=== PATIENT | female | born 1990 | race African-American/Black ===

== ENCOUNTER 2019-06-19 14:03 | Emergency (ER) | payer MEDICAID ==
[~2019-06-19] VITALS: Ht 165.1 cm; Wt 100.0 kg
[2019-06-19 18:40] VITALS: BP 105/71
[2019-06-19 20:41] LABS: CLARITY URINE TURBID (CLEAR); COLOR URINE DARK YELLOW (YELLOW); KETONES URINE 2+ (NEGATIVE); LEUKOCYTE ESTERASE URINE 2+ (NEGATIVE); NITRITE URINE NEGATIVE (NEGATIVE); OCCULT BLOOD URINE NEGATIVE (NEGATIVE); PH URINE 5.5 (4.5-8.0); PROTEIN URINE 1+ (NEGATIVE); SPECIFIC GRAVITY URINE 1.032 (1.005-1.030)
== END 2019-06-20 00:18 | disposition home or self-care (01) ==
LOC: ER 14:03
DX: O26.892 Other specified pregnancy related conditions, second trimester (principal); O23.42 Unspecified infection of urinary tract in pregnancy, second trimester; D64.9 Anemia, unspecified; Z3A.17 17 weeks gestation of pregnancy
CPT/HCPCS: 76805; 81003; 81025; 99284

== ENCOUNTER 2019-11-21 15:44 | Inpatient (IN) | payer MEDICAID ==
[~2019-11-21] VITALS: Ht 162.6 cm; Wt 100.2 kg
[2019-11-21] MEDS ORDERED: NALOXONE HCL 0.4 MG/ML 1ML VIAL IM PRN (17:00)
[2019-11-21] MEDS ORDERED: BUTORPHANOL TARTRATE 2 MG/ML VIAL IV PRN (17:00)
[2019-11-21] MEDS ORDERED: DEXT 5%/LR + PITOCIN 20UNITS/L 1,000 ML IV SCH (17:00)
[2019-11-21] MEDS ORDERED: LIDOCAINE HCL 1% 20ML VIAL (Pyxis) INJ INFIL SCH (17:00)
[2019-11-21 17:23] LABS: CLARITY URINE CLEAR (CLEAR); COLOR URINE DARK YELLOW (YELLOW); KETONES URINE 1+ (NEGATIVE); LEUKOCYTE ESTERASE URINE 1+ (NEGATIVE); NITRITE URINE NEGATIVE (NEGATIVE); OCCULT BLOOD URINE 2+ (NEGATIVE); PH URINE 6.5 (4.5-8.0); PROTEIN URINE TRACE (NEGATIVE); SPECIFIC GRAVITY URINE 1.026 (1.005-1.030)
[2019-11-21 17:34] LABS: BASOPHILS % 0.2 % (0.0-2.0); EOSINOPHILS % 0.2 % (0.0-5.0); HEMATOCRIT. 30.9 % (36.0-48.0); HEMOGLOBIN. 9.8 g/dL (12.0-16.0); LYMPHOCYTES % 14.7 % (20.0-50.0); MEAN CORPUSCULAR HEMOGLOBIN 18.9 pg (28.0-32.0); MEAN CORPUSCULAR VOLUME 59.7 fL (81.0-99.0); MEAN PLATELET VOLUME 8.8 fl (7.4-10.4); MONOCYTES % 7.1 % (2.0-8.0); NEUTROPHILS % 77.8 % (40.0-76.0); PLATELET 96 x1000/uL (130-400); RED BLOOD CELL COUNT 5.18 mill/uL (4.2-5.4); RED CELL DISTRIBUTION WIDTH 22.7 % (11.6-14.6)
[2019-11-21 17:35] LABS: INR 0.9; PARTIAL THROMBOPLASTIN TIME 26.4 sec (23.4-31.0); PROTHROMBIN TIME 9.8 sec (9.6-11.0)
[2019-11-21] MEDS: MISOPROSTOL 100MCG TABLET VG SCH ×2 (17:47→21:00)
[2019-11-21] MEDS: LACTATED RINGERS 1,000 ML IV SCH (17:50)
[2019-11-21] MEDS ORDERED: PENICILLIN G POTASSIUM 5 MMU in DEXT 5% WATER 100 ML IV NR (18:00)
[2019-11-21 18:12] LABS: PLATELET ESTIMATE DECREASED
[2019-11-21 18:13] LABS: HEPATITIS B SURFACE ANTIGEN NEGATIVE
[2019-11-21 18:14] LABS: *AMPHETAMINES SCREEN URINE NEGATIVE (NEGATIVE)
[2019-11-21 18:15] LABS: *BARBITURATES SCREEN URINE NEGATIVE (NEGATIVE); *BENZODIAZEPINES SCREEN URINE NEGATIVE (NEGATIVE); *COCAINE SCREEN URINE NEGATIVE (NEGATIVE); METHADONE URINE SCREEN NEGATIVE (NEGATIVE); OPIATES URINE SCREEN NEGATIVE (NEGATIVE); PHENCYCLIDINE URINE SCREEN NEGATIVE (NEGATIVE)
[2019-11-21 18:16] LABS: CANNABINOID URINE SCREEN NEGATIVE (NEGATIVE)
[2019-11-21 19:00] LABS: CHLORIDE 107 mEq/L (98-107)
[2019-11-21 19:15] LABS: D-DIMER 4.58 mg/L FEU (<0.50)
[2019-11-21] MEDS ORDERED: PENICILLIN G POTASSIUM 2.5 MMU in DEXTROSE 5% WATER 50 ML IV SCH (22:00)
[2019-11-21 23:54] LABS: BASOPHILS % 0.6 % (0.0-2.0); EOSINOPHILS % 0.7 % (0.0-5.0); HEMOGLOBIN. 9.5 g/dL (12.0-16.0); LYMPHOCYTES % 20.3 % (20.0-50.0); MEAN CORPUSCULAR HEMOGLOBIN 19.3 pg (28.0-32.0); MEAN CORPUSCULAR VOLUME 60.4 fL (81.0-99.0); MEAN PLATELET VOLUME 9.1 fl (7.4-10.4); MONOCYTES % 7.3 % (2.0-8.0); NEUTROPHILS % 71.1 % (40.0-76.0); PLATELET 83 x1000/uL (130-400); RED BLOOD CELL COUNT 4.96 mill/uL (4.2-5.4); RED CELL DISTRIBUTION WIDTH 22.6 % (11.6-14.6)
[2019-11-22 00:08] LABS: CHLORIDE 105 mEq/L (98-107); INR 0.9; PARTIAL THROMBOPLASTIN TIME 27.4 sec (23.4-31.0); PROTHROMBIN TIME 9.7 sec (9.6-11.0)
[2019-11-22] MEDS: MISOPROSTOL 100MCG TABLET VG SCH ×2 (02:51→07:13)
[2019-11-22] MEDS: LACTATED RINGERS 1,000 ML IV SCH ×3 (02:51→12:42)
[2019-11-22 06:26] LABS: CHLORIDE 108 mEq/L (98-107)
[2019-11-22 06:29] LABS: BASOPHILS % 0.4 % (0.0-2.0); EOSINOPHILS % 0.5 % (0.0-5.0); HEMATOCRIT. 28.3 % (36.0-48.0); HEMOGLOBIN. 8.9 g/dL (12.0-16.0); LYMPHOCYTES % 22.9 % (20.0-50.0); MEAN CORPUSCULAR HEMOGLOBIN 18.9 pg (28.0-32.0); MEAN CORPUSCULAR VOLUME 60.1 fL (81.0-99.0); MONOCYTES % 9.8 % (2.0-8.0); NEUTROPHILS % 66.4 % (40.0-76.0); RED BLOOD CELL COUNT 4.71 mill/uL (4.2-5.4); RED CELL DISTRIBUTION WIDTH 23.1 % (11.6-14.6)
[2019-11-22 06:37] LABS: INR 0.9; PARTIAL THROMBOPLASTIN TIME 26.6 sec (23.4-31.0); PROTHROMBIN TIME 9.5 sec (9.6-11.0)
[2019-11-22 07:09] LABS: CLARITY URINE CLEAR (CLEAR); COLOR URINE YELLOW (YELLOW); KETONES URINE TRACE (NEGATIVE); LEUKOCYTE ESTERASE URINE 1+ (NEGATIVE); NITRITE URINE NEGATIVE (NEGATIVE); OCCULT BLOOD URINE NEGATIVE (NEGATIVE); PH URINE 6.5 (4.5-8.0); PROTEIN URINE TRACE (NEGATIVE); SPECIFIC GRAVITY URINE 1.025 (1.005-1.030)
[2019-11-22 07:59] LABS: MEAN PLATELET VOLUME 9.9 fl (7.4-10.4); PLATELET 84 x1000/uL (130-400)
[2019-11-22] MEDS ORDERED: MISOPROSTOL 100MCG TABLET PO PRN (11:30)
[2019-11-22 12:39] LABS: BASOPHILS % 0.2 % (0.0-2.0); EOSINOPHILS % 0.7 % (0.0-5.0); HEMATOCRIT. 29.6 % (36.0-48.0); HEMOGLOBIN. 9.3 g/dL (12.0-16.0); LYMPHOCYTES % 17.2 % (20.0-50.0); MEAN CORPUSCULAR HEMOGLOBIN 18.8 pg (28.0-32.0); MEAN CORPUSCULAR VOLUME 60.1 fL (81.0-99.0); MONOCYTES % 6.3 % (2.0-8.0); NEUTROPHILS % 75.6 % (40.0-76.0); RED BLOOD CELL COUNT 4.93 mill/uL (4.2-5.4); RED CELL DISTRIBUTION WIDTH 22.6 % (11.6-14.6)
[2019-11-22 12:44] LABS: CHLORIDE 107 mEq/L (98-107)
[2019-11-22 13:14] LABS: D-DIMER 4.39 mg/L FEU (<0.50); INR 0.9; PROTHROMBIN TIME 9.6 sec (9.6-11.0)
[2019-11-22 13:43] LABS: MEAN PLATELET VOLUME 9.9 fl (7.4-10.4); PLATELET 78 x1000/uL (130-400)
[2019-11-22] MEDS: MISOPROSTOL 100MCG TABLET PO PRN ×2 (15:18→19:25)
[2019-11-22 20:01] LABS: BASOPHILS % 0.1 % (0.0-2.0); EOSINOPHILS % 0.6 % (0.0-5.0); HEMATOCRIT. 29.9 % (36.0-48.0); HEMOGLOBIN. 9.6 g/dL (12.0-16.0); MEAN CORPUSCULAR HEMOGLOBIN 19.3 pg (28.0-32.0); MEAN CORPUSCULAR VOLUME 60.2 fL (81.0-99.0); MEAN PLATELET VOLUME 9.4 fl (7.4-10.4); MONOCYTES % 8.5 % (2.0-8.0); NEUTROPHILS % 74.8 % (40.0-76.0); PLATELET 73 x1000/uL (130-400); RED BLOOD CELL COUNT 4.97 mill/uL (4.2-5.4); RED CELL DISTRIBUTION WIDTH 23.1 % (11.6-14.6)
[2019-11-22 20:11] LABS: CHLORIDE 108 mEq/L (98-107)
[2019-11-22 20:18] LABS: D-DIMER 4.32 mg/L FEU (<0.50); INR 0.9; PARTIAL THROMBOPLASTIN TIME 27.5 sec (23.4-31.0); PROTHROMBIN TIME 9.4 sec (9.6-11.0)
[2019-11-22] MEDS ORDERED: DINOPROSTONE 10MG VAGINAL INSERT VG NR (23:45)
[2019-11-23 00:18] LABS: BASOPHILS % 0.5 % (0.0-2.0); EOSINOPHILS % 0.6 % (0.0-5.0); HEMATOCRIT. 29.9 % (36.0-48.0); HEMOGLOBIN. 9.6 g/dL (12.0-16.0); MEAN CORPUSCULAR HEMOGLOBIN 19.4 pg (28.0-32.0); MEAN CORPUSCULAR VOLUME 60.2 fL (81.0-99.0); MEAN PLATELET VOLUME 8.4 fl (7.4-10.4); MONOCYTES % 7.5 % (2.0-8.0); NEUTROPHILS % 73.4 % (40.0-76.0); PLATELET 76 x1000/uL (130-400); RED BLOOD CELL COUNT 4.96 mill/uL (4.2-5.4); RED CELL DISTRIBUTION WIDTH 23.1 % (11.6-14.6)
[2019-11-23 00:24] LABS: CHLORIDE 108 mEq/L (98-107)
[2019-11-23 00:33] LABS: INR 0.9; PARTIAL THROMBOPLASTIN TIME 27.3 sec (23.4-31.0); PROTHROMBIN TIME 9.6 sec (9.6-11.0)
[2019-11-23] MEDS: BUTORPHANOL TARTRATE 2 MG/ML VIAL IV PRN ×4 (01:31→21:02)
[2019-11-23] MEDS: LACTATED RINGERS 1,000 ML IV SCH ×3 (06:18→21:45)
[2019-11-23] MEDS ORDERED: ONDANSETRON HCL 4MG/2ML INJ IV PRN (07:00)
[2019-11-23 07:19] LABS: BASOPHILS % 0.3 % (0.0-2.0); EOSINOPHILS % 0.4 % (0.0-5.0); HEMATOCRIT. 30.5 % (36.0-48.0); HEMOGLOBIN. 9.6 g/dL (12.0-16.0); LYMPHOCYTES % 18.4 % (20.0-50.0); MEAN CORPUSCULAR HEMOGLOBIN 18.8 pg (28.0-32.0); MEAN CORPUSCULAR VOLUME 59.9 fL (81.0-99.0); MONOCYTES % 7.6 % (2.0-8.0); NEUTROPHILS % 73.3 % (40.0-76.0); RED BLOOD CELL COUNT 5.08 mill/uL (4.2-5.4); RED CELL DISTRIBUTION WIDTH 22.8 % (11.6-14.6)
[2019-11-23 07:26] LABS: CHLORIDE 107 mEq/L (98-107)
[2019-11-23 07:27] LABS: CLARITY URINE CLEAR (CLEAR); COLOR URINE YELLOW (YELLOW); KETONES URINE 1+ (NEGATIVE); LEUKOCYTE ESTERASE URINE 1+ (NEGATIVE); NITRITE URINE NEGATIVE (NEGATIVE); OCCULT BLOOD URINE NEGATIVE (NEGATIVE); PROTEIN URINE NEGATIVE (NEGATIVE); SPECIFIC GRAVITY URINE 1.011 (1.005-1.030); UROBILINOGEN URINE 0.2 E.U./dL (0.2-1.0)
[2019-11-23 07:55] LABS: MEAN PLATELET VOLUME 10.5 fl (7.4-10.4); PLATELET 84 x1000/uL (130-400)
[2019-11-23] MEDS: DEXT 5%/LR + PITOCIN 20UNITS/L 1,000 ML IV SCH (08:11)
[2019-11-23 15:42] LABS: BASOPHILS % 0.3 % (0.0-2.0); EOSINOPHILS % 0.2 % (0.0-5.0); HEMATOCRIT. 29.5 % (36.0-48.0); HEMOGLOBIN. 9.4 g/dL (12.0-16.0); LYMPHOCYTES % 10.5 % (20.0-50.0); MEAN CORPUSCULAR HEMOGLOBIN 19.2 pg (28.0-32.0); MEAN CORPUSCULAR VOLUME 60.3 fL (81.0-99.0); MEAN PLATELET VOLUME 9.1 fl (7.4-10.4); MONOCYTES % 7.3 % (2.0-8.0); NEUTROPHILS % 81.7 % (40.0-76.0); PLATELET 74 x1000/uL (130-400); RED BLOOD CELL COUNT 4.89 mill/uL (4.2-5.4); RED CELL DISTRIBUTION WIDTH 23.4 % (11.6-14.6)
[2019-11-23 16:00] LABS: D-DIMER 3.67 mg/L FEU (<0.50); INR 0.9; PARTIAL THROMBOPLASTIN TIME 27.5 sec (23.4-31.0); PROTHROMBIN TIME 9.6 sec (9.6-11.0)
[2019-11-23 16:09] LABS: CHLORIDE 109 mEq/L (98-107)
[2019-11-23 21:02] LABS: HEMOGLOBIN. 9.7 g/dL (12.0-16.0); MEAN CORPUSCULAR VOLUME 60.5 fL (81.0-99.0); PLATELET 75 x1000/uL (130-400); RED BLOOD CELL COUNT 5.13 mill/uL (4.2-5.4); RED CELL DISTRIBUTION WIDTH 23.1 % (11.6-14.6)
[2019-11-23 21:06] LABS: INR 0.9; PARTIAL THROMBOPLASTIN TIME 26.8 sec (23.4-31.0); PROTHROMBIN TIME 9.6 sec (9.6-11.0)
[2019-11-23 21:09] LABS: CLARITY URINE CLEAR (CLEAR); COLOR URINE YELLOW (YELLOW); KETONES URINE NEGATIVE (NEGATIVE); LEUKOCYTE ESTERASE URINE 1+ (NEGATIVE); NITRITE URINE NEGATIVE (NEGATIVE); OCCULT BLOOD URINE 3+ (NEGATIVE); PH URINE 6.5 (4.5-8.0); PROTEIN URINE TRACE (NEGATIVE); SPECIFIC GRAVITY URINE 1.008 (1.005-1.030)
[2019-11-23 21:19] LABS: CHLORIDE 110 mEq/L (98-107)
[2019-11-23 21:54] LABS: BASOPHILS % 0.2 % (0.0-2.0); EOSINOPHILS % 0.5 % (0.0-5.0); MONOCYTES % 6.9 % (2.0-8.0); NEUTROPHILS % 81.4 % (40.0-76.0)
[2019-11-23 21:56] LABS: PLATELET ESTIMATE DECREASED
[2019-11-24] MEDS: BUTORPHANOL TARTRATE 2 MG/ML VIAL IV PRN ×2 (03:39→19:40)
[2019-11-24] MEDS: DEXT 5%/LR + PITOCIN 20UNITS/L 1,000 ML IV SCH (03:40)
[2019-11-24 04:18] LABS: CHLORIDE 109 mEq/L (98-107)
[2019-11-24 04:19] LABS: BASOPHILS % 0.8 % (0.0-2.0); EOSINOPHILS % 0.2 % (0.0-5.0); HEMATOCRIT. 29.6 % (36.0-48.0); HEMOGLOBIN. 9.5 g/dL (12.0-16.0); LYMPHOCYTES % 11.6 % (20.0-50.0); MEAN CORPUSCULAR HEMOGLOBIN 19.3 pg (28.0-32.0); MEAN CORPUSCULAR VOLUME 60.4 fL (81.0-99.0); MONOCYTES % 7.3 % (2.0-8.0); NEUTROPHILS % 80.1 % (40.0-76.0); RED CELL DISTRIBUTION WIDTH 22.8 % (11.6-14.6)
[2019-11-24 04:28] LABS: INR 0.9; PARTIAL THROMBOPLASTIN TIME 27.5 sec (23.4-31.0); PROTHROMBIN TIME 9.5 sec (9.6-11.0)
[2019-11-24 05:22] LABS: PLATELET 80 x1000/uL (130-400)
[2019-11-24] MEDS: LACTATED RINGERS 1,000 ML IV SCH (05:46)
[2019-11-24] MEDS ORDERED: CITRIC ACID/SODIUM CITRATE SOLN 30ML UDC PO ONE (08:15)
[2019-11-24] MEDS ORDERED: CEFAZOLIN SODIUM 1000MG/VIAL ONE ×2 (08:17→08:53)
[2019-11-24] MEDS ORDERED: PROPOFOL 200MG/20ML VIAL IV ONE (08:17)
[2019-11-24] MEDS ORDERED: OXYTOCIN 10 UNITS/ML 1ML ONE ×3 (08:17→09:28)
[2019-11-24] MEDS ORDERED: KETOROLAC 60MG/2ML VIAL IM ONE (08:18)
[2019-11-24] MEDS ORDERED: METOCLOPRAMIDE HCL 10MG/2ML VIAL ONE (08:18)
[2019-11-24] MEDS ORDERED: ONDANSETRON HCL 4MG/2ML INJ ONE (08:18)
[2019-11-24] MEDS ORDERED: ESMOLOL HCL 10MG/ML 10ML VIAL IV ONE (08:18)
[2019-11-24] MEDS ORDERED: SUCCINYLCHOLINE CHLORIDE 200MG/10ML IV ONE (08:19)
[2019-11-24] MEDS ORDERED: LIDOCAINE HCL/PF 2% 20MG/ML 5 ML/VIAL ONE (08:19)
[2019-11-24] MEDS ORDERED: FENTANYL CITRATE/PF 50MCG/ML 2ML VIAL ONE (08:19)
[2019-11-24] MEDS ORDERED: ROCURONIUM BROMIDE 10MG/ML VIAL 5ML IV ONE (09:00)
[2019-11-24] MEDS ORDERED: GLYCOPYRROLATE 0.2 MG/ML 2ML VIAL ONE (09:02)
[2019-11-24] MEDS ORDERED: NEOSTIGMINE METHYLSULFATE 1MG/ML 10 ML VIAL ONE (09:02)
[2019-11-24] MEDS ORDERED: DEXT 5%/LR + PITOCIN 20UNITS/L 1,000 ML IV SCH (09:29)
[2019-11-24] MEDS ORDERED: ONDANSETRON HCL 4MG/2ML INJ IV PRN ×2 (09:30→09:45)
[2019-11-24] MEDS ORDERED: IBUPROFEN 400MG TABLET PO PRN (09:30)
[2019-11-24] MEDS ORDERED: BISACODYL 10MG SUPP PR PRN (09:30)
[2019-11-24] MEDS ORDERED: LANOLIN OINT 7GM TUBE TOP PRN (09:30)
[2019-11-24] MEDS ORDERED: KETOROLAC 30MG/ML VIAL IV PRN (09:30)
[2019-11-24] MEDS ORDERED: DIPHENHYDRAMINE 25MG CAPSULE PO PRN (09:30)
[2019-11-24] MEDS ORDERED: RHO(D) IMMUNE GLOBULIN 300 MCG/SYR IM PRN (09:30)
[2019-11-24] MEDS ORDERED: FENTANYL CITRATE/PF 50MCG/ML 2ML VIAL IV PRN ×3 (09:45)
[2019-11-24] MEDS ORDERED: DEXAMETHASONE 10 MG/ML VIAL IV PRN (09:45)
[2019-11-24] MEDS ORDERED: DIPHENHYDRAMINE 50MG/ML VIAL IV PRN (09:45)
[2019-11-24] MEDS ORDERED: MORPHINE SULFATE 10 MG/ML CPJ IV PRN (09:45)
[2019-11-24] MEDS ORDERED: MORPHINE SULFATE 2 MG/ML CPJ (NOT FOR IM USE) IV PRN ×2 (09:45)
[2019-11-24] MEDS ORDERED: MEPERIDINE HCL/PF 25MG/ML CPJ IV PRN (09:45)
[2019-11-24] MEDS ORDERED: METHYLERGONOVINE MALEATE 0.2 MG/ML ONE (10:00)
[2019-11-24] MEDS: SIMETHICONE 80MG TABLET CHEW PO SCH ×2 (13:00→21:00)
[2019-11-24 13:25] VITALS: BP 106/66
[2019-11-24 13:55] VITALS: BP 110/56
[2019-11-24 17:00] VITALS: BP 113/74
[2019-11-24 20:00] VITALS: BP 124/60
[2019-11-24] MEDS: DOCUSATE SODIUM 100MG CAPSULE PO SCH (21:00)
[2019-11-25] VITALS: BP 125/81
[2019-11-25 05:48] VITALS: BP 130/78
[2019-11-25] MEDS ORDERED: AMPICILLIN 2,000 MG in SODIUM CHLORIDE 0.9% 100 ML IV SCH (06:00)
[2019-11-25 06:38] LABS: BASOPHILS % 0.2 % (0.0-2.0); EOSINOPHILS % 0.1 % (0.0-5.0); LYMPHOCYTES % 7.7 % (20.0-50.0); MEAN CORPUSCULAR HEMOGLOBIN 19.3 pg (28.0-32.0); MEAN CORPUSCULAR VOLUME 60.3 fL (81.0-99.0); MEAN PLATELET VOLUME 8.7 fl (7.4-10.4); MONOCYTES % 6.3 % (2.0-8.0); NEUTROPHILS % 85.7 % (40.0-76.0); PLATELET 84 x1000/uL (130-400); RED BLOOD CELL COUNT 3.48 mill/uL (4.2-5.4); RED CELL DISTRIBUTION WIDTH 22.2 % (11.6-14.6)
[2019-11-25 06:58] LABS: CHLORIDE 107 mEq/L (98-107)
[2019-11-25 07:49] LABS: HEMOGLOBIN. 6.7 g/dL (12.0-16.0)
[2019-11-25 09:00] VITALS: BP 126/76
[2019-11-25] MEDS ORDERED: GENTAMICIN SULFATE 160 MG in SODIUM CHLORIDE 0.9% 50 ML IV NR (09:00)
[2019-11-25] MEDS: SIMETHICONE 80MG TABLET CHEW PO SCH ×5 (09:50→20:55)
[2019-11-25] MEDS: IBUPROFEN 800MG TABLET PO PRN ×4 (10:06→23:09)
[2019-11-25 12:00] VITALS: BP 128/78
[2019-11-25 15:00] VITALS: BP 133/76
[2019-11-25] MEDS: AMPICILLIN 1,000 MG in SODIUM CHLORIDE 0.9% 50 ML IV SCH ×2 (15:08→20:55)
[2019-11-25] MEDS: PRENATAL VIT/FE FUMARATE/FA TABLET PO SCH (15:09)
[2019-11-25] MEDS: HYDROCODONE/ACETAMINOPHEN 5/325MG TABLET PO PRN (17:10)
[2019-11-25] MEDS: FERROUS SULFATE 325MG TABLET PO SCH (18:14)
[2019-11-25 19:00] VITALS: BP 131/78
[2019-11-25] MEDS: GENTAMICIN 120MG PREMIX 100 ML IV SCH (19:12)
[2019-11-25] MEDS: DOCUSATE SODIUM 100MG CAPSULE PO SCH (20:55)
[2019-11-26] MEDS: GENTAMICIN 120MG PREMIX 100 ML IV SCH ×2 (02:50→10:59)
[2019-11-26] MEDS: AMPICILLIN 1,000 MG in SODIUM CHLORIDE 0.9% 50 ML IV SCH ×4 (03:20→21:12)
[2019-11-26 04:00] VITALS: BP 118/74
[2019-11-26 07:30] VITALS: BP 132/81
[2019-11-26] MEDS: HYDROCODONE/ACETAMINOPHEN 5/325MG TABLET PO PRN (07:40)
[2019-11-26] MEDS: FERROUS SULFATE 325MG TABLET PO SCH ×3 (09:03→17:00)
[2019-11-26] MEDS: SIMETHICONE 80MG TABLET CHEW PO SCH ×3 (09:03→17:00)
[2019-11-26] MEDS: PRENATAL VIT/FE FUMARATE/FA TABLET PO SCH (09:03)
[2019-11-26] MEDS: IBUPROFEN 800MG TABLET PO PRN ×3 (09:49→23:53)
[2019-11-26 14:43] VITALS: BP 116/72
[2019-11-26] MEDS ORDERED: GENTAMICIN 120MG PREMIX 100 ML IV SCH (19:00)
[2019-11-26 20:00] VITALS: BP 119/69
[2019-11-26] MEDS ORDERED: GENTAMICIN SULFATE 160 MG in SODIUM CHLORIDE 0.9% 100 ML IV SCH (23:00)
[2019-11-27] VITALS: BP 130/77
[2019-11-27] MEDS: AMPICILLIN 1,000 MG in SODIUM CHLORIDE 0.9% 50 ML IV SCH ×2 (03:12→09:00)
[2019-11-27 04:00] VITALS: BP 137/83
[2019-11-27 06:55] LABS: BASOPHILS % 0.8 % (0.0-2.0); EOSINOPHILS % 1.4 % (0.0-5.0); LYMPHOCYTES % 23.9 % (20.0-50.0); MEAN CORPUSCULAR VOLUME 60.3 fL (81.0-99.0); MONOCYTES % 9.3 % (2.0-8.0); NEUTROPHILS % 64.6 % (40.0-76.0); RED CELL DISTRIBUTION WIDTH 22.6 % (11.6-14.6)
[2019-11-27 07:01] LABS: HEMATOCRIT. 19.3 % (36.0-48.0); HEMOGLOBIN. 6.4 g/dL (12.0-16.0)
[2019-11-27 08:00] VITALS: BP 126/84
[2019-11-27 08:13] LABS: PLATELET 87 x1000/uL (130-400)
[2019-11-27] MEDS: SIMETHICONE 80MG TABLET CHEW PO SCH (08:34)
[2019-11-27] MEDS: FERROUS SULFATE 325MG TABLET PO SCH (08:34)
[2019-11-27] MEDS: PRENATAL VIT/FE FUMARATE/FA TABLET PO SCH (08:34)
[2019-11-27] MEDS: IBUPROFEN 800MG TABLET PO PRN (08:34)
== END 2019-11-27 11:25 | disposition home or self-care (01) | DRG 540 ==
LOC: 8 EST LDRP 15:44 → OBSVTOIN 15:44 → 8EST 11-24 13:25
PROVIDERS: ADMIT Specialist; ATTEND Specialist
PROC: 0U7C7ZZ Dilation of Cervix, Via Natural or Artificial Opening (ICD-10-PCS; 2019-11-23)
PROC: 10D00Z1 Extraction of Products of Conception, Low, Open Approach (ICD-10-PCS; principal; 2019-11-24)
DX: O48.0 Post-term pregnancy (principal); D69.6 Thrombocytopenia, unspecified; D62 Acute posthemorrhagic anemia; O99.12 Other diseases of the blood and blood-forming organs and certain disorders involving the immune mechanism complicating childbirth; O61.9 Failed induction of labor, unspecified; Z3A.41 41 weeks gestation of pregnancy; Z37.0 Single live birth; O99.02 Anemia complicating childbirth; O99.214 Obesity complicating childbirth; O99.52 Diseases of the respiratory system complicating childbirth; J98.11 Atelectasis
CPT/HCPCS: 36415; 71045; 76805; 76818; 80053; 80170; 80305; 81003; 84550; 85025; 85379; 85384; 86592; 86703; 86762; 86850; 86900; 86920; 87070; 87075; 87077; 87340; 88307; J0290; J0330; J0595; J0690; J1580; J1885; J2210; J2270; J2405; J2540; J2590; J2704; J2710; J2765; J3010; J3490; J7050; J7060; J7120

== ENCOUNTER 2020-01-30 06:57 | Emergency (ER) | payer MEDICAID ==
[~2020-01-30] VITALS: Ht 170.2 cm; Wt 81.0 kg
[2020-01-30] MEDS ORDERED: ONDANSETRON HCL 4MG/2ML INJ IV STA (07:56)
[2020-01-30] MEDS ORDERED: MORPHINE SULFATE 4 MG/ML CPJ (NOT FOR IM USE) IV STA (07:56)
[2020-01-30] MEDS ORDERED: SODIUM CHLORIDE 0.9% 1,000 ML IV ONE (07:56)
[2020-01-30 08:16] LABS: CHLORIDE 105 mEq/L (98-107)
[2020-01-30 08:18] LABS: HEMATOCRIT. 26.8 % (36.0-48.0); HEMOGLOBIN. 8.1 g/dL (12.0-16.0); MEAN CORPUSCULAR VOLUME 56.2 fL (81.0-99.0); MEAN PLATELET VOLUME 9.2 fl (7.4-10.4); PLATELET 198 x1000/uL (130-400); PROTHROMBIN TIME 10.3 sec (9.6-11.0); RED BLOOD CELL COUNT 4.78 mill/uL (4.2-5.4)
[2020-01-30 08:22] LABS: HCG SCREEN NEGATIVE
[2020-01-30 08:23] LABS: COLOR URINE YELLOW (YELLOW); KETONES URINE NEGATIVE (NEGATIVE); LEUKOCYTE ESTERASE URINE NEGATIVE (NEGATIVE); NITRITE URINE NEGATIVE (NEGATIVE); OCCULT BLOOD URINE NEGATIVE (NEGATIVE); PH URINE 7.5 (4.5-8.0); PROTEIN URINE TRACE (NEGATIVE); SPECIFIC GRAVITY URINE 1.026 (1.005-1.030); UROBILINOGEN URINE 0.2 E.U./dL (0.2-1.0)
[2020-01-30 08:24] LABS: CLARITY URINE SL HAZY (CLEAR)
[2020-01-30 09:20] LABS: PLATELET ESTIMATE NORMAL
[2020-01-30 12:29] VITALS: BP 118/57
== END 2020-01-30 12:36 | disposition home or self-care (01) ==
LOC: ER 07:39
DX: N83.202 Unspecified ovarian cyst, left side (principal); N83.201 Unspecified ovarian cyst, right side; Z98.890 Other specified postprocedural states
CPT/HCPCS: 36415; 74176; 76830; 76856; 80053; 81003; 83690; 84703; 85025; 85610; 93005; 96361; 96374; 96375; 99285; J2270; J2405; J7030

== ENCOUNTER 2021-06-11 13:32 | Emergency (ER) | payer MEDICAID ==
[~2021-06-11] VITALS: Ht 165.1 cm; Wt 100.0 kg
[2021-06-11 14:36] VITALS: BP 143/68
[2021-06-11] MEDS ORDERED: ACETAMINOPHEN 325MG TABLET PO ONE (14:45)
[2021-06-11 17:32] LABS: BASOPHILS % 0.6 % (0.0-2.0); CHLORIDE 106 mEq/L (98-107); EOSINOPHILS % 0.1 % (0.0-5.0); HEMATOCRIT. 26.7 % (36.0-48.0); HEMOGLOBIN. 7.4 g/dL (12.0-16.0); LYMPHOCYTES % 8.7 % (20.0-50.0); MEAN CORPUSCULAR HEMOGLOBIN 13.9 pg (28.0-32.0); MEAN CORPUSCULAR VOLUME 50.3 fL (81.0-99.0); MONOCYTES % 5.2 % (2.0-8.0); NEUTROPHILS % 85.4 % (40.0-76.0); RED CELL DISTRIBUTION WIDTH 22.8 % (11.6-14.6)
[2021-06-11] MEDS ORDERED: LIDOCAINE HCL 1% 20ML VIAL (Pyxis) INJ INFIL ONE (17:45)
[2021-06-11] MEDS ORDERED: CEFTRIAXONE SODIUM 500 MG/VIAL IM ONE (17:45)
[2021-06-11 17:46] LABS: CLARITY URINE CLEAR (CLEAR); COLOR URINE YELLOW (YELLOW); KETONES URINE NEGATIVE (NEGATIVE); LEUKOCYTE ESTERASE URINE TRACE (NEGATIVE); NITRITE URINE NEGATIVE (NEGATIVE); OCCULT BLOOD URINE NEGATIVE (NEGATIVE); PROTEIN URINE NEGATIVE (NEGATIVE); SPECIFIC GRAVITY URINE 1.017 (1.005-1.030); UROBILINOGEN URINE 0.2 E.U./dL (0.2-1.0)
[2021-06-11 17:47] LABS: B-HCG QUANTITATIVE < 1 mIU/mL (<3)
[2021-06-11 18:01] LABS: *AMPHETAMINES SCREEN URINE NEGATIVE (NEGATIVE); *BARBITURATES SCREEN URINE NEGATIVE (NEGATIVE); *BENZODIAZEPINES SCREEN URINE NEGATIVE (NEGATIVE); *COCAINE SCREEN URINE NEGATIVE (NEGATIVE); CANNABINOID URINE SCREEN NEGATIVE (NEGATIVE); METHADONE URINE SCREEN NEGATIVE (NEGATIVE); OPIATES URINE SCREEN NEGATIVE (NEGATIVE); PHENCYCLIDINE URINE SCREEN NEGATIVE (NEGATIVE)
[2021-06-11 18:05] LABS: PLATELET ESTIMATE NORMAL
[2021-06-11 18:06] LABS: MEAN PLATELET VOLUME 9.8 fl (7.4-10.4); PLATELET 232 x1000/uL (130-400)
[2021-06-11] MEDS ORDERED: METR500T MT (18:15)
[2021-06-11] MEDS ORDERED: IBUP-2028 MT (18:15)
[2021-06-11] MEDS ORDERED: DOXY100C5 MT (18:15)
[2021-06-11] MEDS ORDERED: NITR-87 MT (18:15)
[2021-06-17 04:07] LABS: NEISSERIA GONORRHOEAE NAA Negative (Negative)
== END 2021-06-11 18:52 | disposition home or self-care (01) ==
LOC: ER 13:32
DX: N76.0 Acute vaginitis (principal); B96.89 Other specified bacterial agents as the cause of diseases classified elsewhere; N39.0 Urinary tract infection, site not specified
CPT/HCPCS: 36415; 76830; 76856; 80053; 80305; 81003; 81025; 84702; 85025; 86850; 86900; 86901; 87210; 87491; 87591; 96372; 99284; J0696; J3490